=== PATIENT | female | born 1995 | race Caucasian/White ===

== ENCOUNTER 2018-01-30 13:27 | Emergency (ER) | payer OTHER ==
[2018-01-30 14:03] VITALS: BP 125/87
--- NOTE | 2018-01-30 14:48 | UC ---
Complaint Female HPI - HPI Summary HPI Summary: 22 y/o female presents to the urgent care stating her ex-boyfriend just told her he was Dx w/ chlamydia. Pt states she has used condoms only 50% of the time w/ him. Pt is concern about STD's. Pt states she presently has her Menstrual cycle which stated 01/25/2018. She states mild cramping pelvic pain 5/ 10. Pt denies Hx of STD's in the past. Pt denies urinary symptoms, lower back pain, flnak pain, SOB, chest pain, N/V/D. - History Of Current Complaint Chief Complaint: UCGU Stated Complaint: PERSONAL Time Seen by Provider: 01/30/18 14:37 Hx Obtained From: Patient Hx Last Menstrual Period: 01/24/18 ?: No Onset/Duration: Sudden Onset, Lasting Days - 2 days, Still Present Timing: Constant Severity Initially: Mild Severity Currently: Mild Pain Intensity: 4 Pain Scale Used: 0-10 Numeric Character: Cramping Aggravating Factor(s): [place] Alleviating Factor(s): Nothing Associated Signs And Symptoms: Positive: Vaginal Bleeding/Discharge. Negative: Fever, Back Pain, Nausea, Vomiting(# Of Episodes =), Genital Swelling, Genital Blisters - Risk Factors Ectopic Risk Factor: Negative Ovarian Torsion Risk Factor: Negative - Allergies/Home Medications Allergies/Adverse Reactions: Allergies Allergy/AdvReac Type Severity Reaction Status Date / Time No Known Allergies Allergy Verified 01/30/18 14:04 PMH/Surg Hx/FS Hx/Imm Hx Previously Healthy: Yes Other Endocrine History: PCOS - Surgical History Surgical History: None - Family History Known Family History: Positive: Hypertension - Social History Occupation: Student Lives: With Family Alcohol Use: Occasionally Substance Use Type: None Smoking Status (MU): Never Smoked Tobacco - Immunization History Most Recent Influenza Vaccination: 2012 Vaccination Up to Date: Yes Review of Systems Constitutional: Negative Skin: Negative Eyes: Negative ENT: Negative Respiratory: Negative Cardiovascular: Negative Gastrointestinal: Negative Genitourinary: Vaginal/Penile Discharge, Other - pelvic cramping pain Motor: Negative Neurovascular: Negative Musculoskeletal: Negative Neurological: Negative Psychological: Negative Is Patient Immunocompromised?: No All Other Systems Reviewed And Are Negative: Yes Physical Exam - Summary Physical Exam Summary: Vital signs: reviewed General: well developed, well nourished female adolescent sitting in the examining table w/o any acute distress. Head: Normocephalic, no lesions. Eyes: PERRLA, EOM's full, conjunctiva clear, fundi grossly normal. Ears: EAC's clear, TM's normal. Nose: Mucosa normal, no obstruction. Throat: Clear, no exudates, no lesions. Neck: Supple, no masses, no thyromegaly, no bruits. Chest: Lungs clear, no rales, no rhonchi, no wheezes. Heart: RR, no murmurs, no rubs, no gallops. Abdomen: Soft, no tenderness, no masses, BS normal. : Normal, no lesions, no discharge, no hernias noted. Pelvic: I was compensation vice president by Nurse Tamiko. External genitalia within normal limits. There is no lesions there is no masses noted. Speculum exam: The vaginal nova are within normal limits w/ mild brown vaginal discharge, no the lesions or rashes. The cervix is closed with no lesions or masses. There is no CMT's, and no adnexal masses. Sample sent to Lab for G/C and Affirm panel. Rectal: No lesions, no hemorrhoids, Back: Normal curvature, no tenderness. Extremities: FROM, no deformities, no edema, no erythema. Neuro: Physiological, no localizing findings. Skin: Normal, no rashes, no lesions noted. Triage Information Reviewed: Yes Vital Signs: Initial Vital Signs Temp 99.8 F 01/30/18 13:57 Pulse 83 01/30/18 13:57 Resp 18 01/30/18 13:57 BP 125/87 01/30/18 13:57 Pulse Ox 100 01/30/18 13:57 Complaint Female Dx - Course Course Of Treatment: 22 y/o female presents to the urgent care stating her ex- boyfriend just told her he was Dx w/ chlamydia. Pt states she has used condoms only 50% of the time w/ him. Pt is concern about STD's. Pt states she presently has her Menstrual cycle which stated 01/25/2018. She states mild cramping pelvic pain 5/10. Pt denies Hx of STD's in the past. Pt denies urinary symptoms, lower back pain, flnak pain, SOB, chest pain, N/V/D.Hx obtained. Pt w/ a brownish vaginal discharge on pelvic examiantion. vaginal samples sent to the lab to r/o GC/Chla, thrichomonas and Affirm. Pt given prophylactic treatment for GC/ chlamydia and advised she will be notified of any abnormal result for further treatment.UA:negative. test:negative. Pt given Rocephin IM inj and azithromycin PO for prophylactic treatment for GC/chlamydia.Pt tolerated well medications. Pt educated on STD's and protection. Given referral for [facility] for STD's screening in blood for HIVm siphylis, Hep B and C and PAP. D/C instructions explained. Pt understood and agreed with plan of care. - Differential Dx/Diagnosis Differential Diagnosis/HQI/PQRI: Cervicitis, Pelvic Inflammatory Disease, , Sexually Transmitted Disease, Ureteral Stone, Urinary Tract Infection Provider Diagnoses: 1- Sexually transmitted disease secrening. 2- Prophylaxis for GC/chlamydia Discharge - Sign-Out/Discharge Documenting (check all that apply): Patient Departure - D/C home All imaging exams completed and their final reports reviewed: Yes - Discharge Plan Condition: Stable Disposition: HOME Prescriptions: Fluconazole [Diflucan 150 MG (NF)] 150 mg PO ONCE #1 tab metroNIDAZOLE [Flagyl] 500 mg PO BID #14 tablet Patient Education Materials: Chlamydia (ED), Sexually Transmitted Diseases (ED) Referrals: Areli Tucker MD [Primary Care Provider] - 3 Days Additional Instructions: 1- You were given prophylactic treatment today for Chlamydia and gonorrhea 2-Please f/u with [facility] for a PAP. Please f/u w/ [facility] or your [facility] for further testing in blood for Syphilis, HIV, herpes, Hep C and Hep B . 3- Specimen were sent to lab, if anything abnormal you will receive a call from us for further treatment. - Billing Disposition and Condition Condition: STABLE Disposition: Home
[2018-01-30] MEDS ORDERED: cefTRIAXone VIAL(*) 250 MG VIAL IM ONE (15:14)
[2018-01-30] MEDS ORDERED: Azithromycin TAB* 250 MG PO ONE (15:16)
[2018-01-30] MEDS ORDERED: Lidocaine 1% MPF* 2 ML VIAL INJ ONE (15:17)
[2018-01-30] MEDS ORDERED: Lidocaine 1%* 5 ML VIAL ONE (15:43)
--- NOTE | 2018-01-31 19:13 | PN ---
Progress Note - Progress Note Date of Service: 01/31/18 Note: Patient's vaginal cultures came back positive for gardnerella and candidiasis. Sent prescription for Diflucan and for Flagyl 500 mg twice a day 7 days. Please call and inform patient's of results and prescription to pickup. inform patient not to drink alcohol while taking the Flagyl.
== END 2018-01-30 16:02 | disposition home or self-care (01) ==
LOC: UCEAST 13:27
DX: Z11.8 Encounter for screening for other infectious and parasitic diseases (principal); Z79.899 Other long term (current) drug therapy
CPT/HCPCS: 81003; 84702; 87480; 87491; 87510; 87591; 87661; 96372; A9270-GY; J0696